=== PATIENT | male | born 1950 | race Asian ===

== ENCOUNTER 2017-05-05 10:36 | Outpatient (CLI) | payer OTHER | END 2017-05-05 11:45 | disposition home or self-care (01) | LOC: CT 10:36 | DX: R05 Cough (principal); R06.02 Shortness of breath; J18.9 Pneumonia, unspecified organism | CPT/HCPCS: 36415; 82565; 84520; Q9963 ==

== ENCOUNTER 2018-01-06 16:09 | Outpatient (CLI) | payer OTHER | END 2018-01-06 22:20 | disposition home or self-care (01) | LOC: US 16:09 | DX: M25.562 Pain in left knee (principal); R60.0 Localized edema ==

== ENCOUNTER 2018-11-30 12:02 | Outpatient (CLI) | payer OTHER ==
[2018-11-30 13:08] LABS: POTASSIUM 4.1 mmol/L (3.6-5.2)
== END 2018-11-30 21:35 | disposition home or self-care (01) ==
LOC: LAB 12:02
PROVIDERS: Internal Medicine
DX: E11.9 Type 2 diabetes mellitus without complications (principal)
CPT/HCPCS: 80053; 83036